=== PATIENT | male | born 1995 | race Two or more races ===

== ENCOUNTER 2024-07-29 16:55 | Inpatient (IN) | payer OTHER ==
[~2024-07-29] VITALS: Ht 172.7 cm; Wt 84.1 kg
[2024-07-29] MEDS ORDERED: ONDANSETRON HCL 4 MG/2 ML VIAL IVP PRN (18:45)
[2024-07-29] MEDS: DOCUSATE SODIUM 100 MG CAPSULE PO SCH (20:31)
[2024-07-29] MEDS: HEPARIN SODIUM,PORCINE 5,000 UNITS/ML VIAL SQ SCH (23:17)
[2024-07-30] MEDS ORDERED: BICT1TAB3 PO (01:30)
[2024-07-30 01:34] VITALS: BP 118/75; PULSE 59; RESP 18; TEMP 97.8; O2SAT 99
[2024-07-30 06:04] VITALS: BP 105/66; PULSE 75; RESP 18; TEMP 97.9; O2SAT 97
[2024-07-30 08:56] VITALS: BP 109/76; PULSE 70; RESP 20; TEMP 98.4; O2SAT 99
[2024-07-30 10:22] LABS: BASOPHILS % (AUTO) 0.1 % (0.0-2.0); EOSINOPHILS % (AUTO) 0.7 % (1.0-6.0); HEMATOCRIT 44.8 % (41-53); HEMOGLOBIN 15.2 g/dL (13.5-17.5); LYMPHOCYTES # (AUTO) 1.2 K/uL (1.0-4.8); LYMPHOCYTES % (AUTO) 22.3 % (22.0-44.0); MEAN CORPUSCULAR HEMOGLOBIN 31.6 pg (26.0-34.0); MEAN CORPUSCULAR VOLUME 93 fL (80-100); MONOCYTES # (AUTO) 0.4 K/uL (0.1-1.0); MONOCYTES % (AUTO) 7.2 % (2.0-9.0); NEUTROPHILS # (AUTO) 3.7 K/uL (1.8-7.7); NEUTROPHILS % (AUTO) 69.7 % (40.0-70.0); PLATELET COUNT (AUTO) 271 K/uL (150-450); RED BLOOD CELL COUNT(AUTO) 4.83 MIL/uL (4.50-5.90); RED CELL DISTRIBUTION WIDTH 12.4 % (11.5-14.5); WHITE BLOOD COUNT (AUTO) 5.3 K/uL (4.5-11.0)
[2024-07-30 10:30] LABS: ANION GAP 7 mmol/L (8-16); CALCIUM, TOTAL 8.4 mg/dL (8.8-10.5); CARBON DIOXIDE 30 mmol/L (22-29); CHLORIDE 102 mmol/L (98-107); CREATININE 1.02 mg/dL (0.60-1.30); GLOMERULAR FILTR. RATE CALC > 60 mL/min (>60); GLUCOSE,RANDOM 118 mg/dL (70-110); POTASSIUM 3.9 mmol/L (3.5-5.1); SODIUM SERUM 139 mmol/L (136-145); UREA NITROGEN, BLOOD 14 mg/dL (7-18)
[2024-07-30] MEDS ORDERED: BICT1TAB PO (11:05)
[2024-07-30] MEDS: BICTEGRAV/EMTRICIT/TENOFOV ALA 50-200-25 MG TABLET PO SCH (12:51)
[2024-07-30] MEDS ORDERED: SODIUM CHLORIDE 3% 15 ML NEB SOLUTION NEB ONE (20:32)
[2024-07-30 20:39] VITALS: BP 139/65; PULSE 87; RESP 18; TEMP 98.4; O2SAT 98
[2024-07-31 05:15] VITALS: BP 109/61; PULSE 63; RESP 18; TEMP 98.1; O2SAT 99
[2024-07-31 09:17] VITALS: BP 120/61; PULSE 66; RESP 18; TEMP 97.6; O2SAT 99
[2024-07-31 13:03] LABS: MTB PCR w/Rif. Resistance-SPUT NOT DETECTED (Not Detectd); MTB-RIFAMPIN RESISTANCE NOT DETECTED (Not detectd)
[2024-07-31] MEDS: ACETAMINOPHEN 325 MG TABLET PO PRN (18:24)
[2024-07-31 20:45] VITALS: BP 119/65; PULSE 74; RESP 18; TEMP 97.1; O2SAT 96
[2024-07-31] MEDS ORDERED: SODIUM CHLORIDE 3% 15 ML NEB SOLUTION NEB ONE (22:28)
[2024-08-01 04:30] VITALS: BP 119/68; PULSE 64; RESP 18; TEMP 97.7; O2SAT 97
[2024-08-01 07:34] VITALS: BP 125/72; PULSE 65; RESP 18; TEMP 98.5; O2SAT 96
[2024-08-01] MEDS: ESCITALOPRAM OXALATE 10 MG TABLET PO SCH (12:06)
[2024-08-01 13:23] LABS: MTB PCR w/Rif. Resistance-SPUT NOT DETECTED (Not Detectd)
[2024-08-01 20:18] VITALS: BP 121/71; PULSE 79; RESP 18; TEMP 98.4; O2SAT 98
[2024-08-02 03:06] LABS: QUANTIFERON+, Nil Value 0.18 IU/mL; QUANTIFERON+,Mitogen Value 9.07 IU/mL; QUANTIFERON+,TB1 Antigen Value 0.55 IU/mL; QUANTIFERON, TB GOLD PLUS Positive (Negative)
[2024-08-02 05:49] VITALS: BP 108/62; PULSE 61; RESP 18; TEMP 98.2; O2SAT 96
[2024-08-02 06:06] LABS: HIV 1-2 SCREEN 4TH GEN W/RFLX Preliminary Reactive (Non Reactive); HIV INTERPRETATION HIV-1 Positive; HIV-1 ANTIBODY(MULTISPOT) Reactive (Non Reactive); HIV-2 ANTIBODY(MULTISPOT) Non Reactive (Non Reactive)
[2024-08-02 10:08] VITALS: BP 122/67; PULSE 91; RESP 18; TEMP 98.2; O2SAT 97
[2024-08-02 21:37] VITALS: BP 111/55; PULSE 70; RESP 20; TEMP 98.3; O2SAT 97
[2024-08-03 05:35] VITALS: BP 119/68; PULSE 77; RESP 18; TEMP 98.3; O2SAT 96
[2024-08-03 07:25] VITALS: BP 114/65; PULSE 82; RESP 20; TEMP 98.8; O2SAT 97
[2024-08-03 20:14] VITALS: BP 108/66; PULSE 95; RESP 18; TEMP 98.5; O2SAT 97
[2024-08-04 07:59] VITALS: BP 122/67; PULSE 71; RESP 18; TEMP 98.3; O2SAT 100
[2024-08-04 20:00] VITALS: BP 110/59; PULSE 78; RESP 18; TEMP 98; O2SAT 96
[2024-08-05 04:00] VITALS: BP 117/71; PULSE 76; RESP 20; TEMP 97.9; O2SAT 97
[2024-08-05 08:04] VITALS: BP 116/75; PULSE 73; RESP 18; TEMP 98.1; O2SAT 97
[2024-08-05 19:15] VITALS: BP 118/68; PULSE 66; RESP 18; TEMP 98.8; O2SAT 98
[2024-08-06 04:30] VITALS: BP 125/68; PULSE 77; RESP 18; TEMP 97.9; O2SAT 96
[2024-08-06 08:02] VITALS: BP 115/66; PULSE 85; RESP 18; TEMP 98.9; O2SAT 96
[2024-08-06 19:30] VITALS: BP 118/73; PULSE 85; RESP 18; TEMP 98.2; O2SAT 95
[2024-08-06 22:00] VITALS: BP 95/61; PULSE 65; RESP 18; TEMP 97.7; O2SAT 93
[2024-08-07 04:45] VITALS: BP 118/65; PULSE 71; RESP 18; TEMP 97.7; O2SAT 97
[2024-08-07 08:45] VITALS: BP 119/76; PULSE 73; RESP 18; TEMP 97.8; O2SAT 96
[2024-08-07] MEDS ORDERED: ESCI-8 PO (11:32)
== END 2024-08-07 17:03 | DRG 204 ==
LOC: EMS 16:55 → EDH 18:41 → 6N 07-30 01:20
PROVIDERS: ADMIT Internal Medicine; ATTEND Internal Medicine
DX: R05.9 Cough, unspecified (principal); Z86.11 Personal history of tuberculosis; I10 Essential (primary) hypertension; Z91.199 Patient's noncompliance with other medical treatment and regimen due to unspecified reason
CPT/HCPCS: 71046; 80048; 83735; 85025; 86480; 87015; 87206; 87389; 87556; 94640; 99285; G0378; J1644; 36415-L1; 36415-TC

== ENCOUNTER → 2024-12-20 | Outpatient (CLI) | payer OTHER ==
[~2024-12-20] MED LIST: BICT1TAB PO; ESCI-8 PO; GADOTERATE MEGLUMINE 10 MMOL/20 ML VIAL IVP ONE
== END | disposition home or self-care (01) ==
LOC: RADMN 08:08
PROVIDERS: ATTEND Internal Medicine
DX: R59.0 Localized enlarged lymph nodes (principal)
CPT/HCPCS: 70553; A9575